=== PATIENT | female | born 1995 | race Caucasian/White ===

== ENCOUNTER 2017-05-27 10:39 | Emergency (ER) | payer MEDICAID, OTHER ==
[2017-05-27 10:43] VITALS: BP 97/66; PULSE 101; RESP 16; TEMP 98.1; O2SAT 100
--- NOTE | 2017-05-27 10:59 | C.PDOC ---
Time Seen by Provider: 05/27/17 10:47 Chief Complaint (Nursing): Dental Pain Past Medical History Vital Signs: Last Vital Signs Temp 98.1 F 05/27/17 10:41 Pulse 101 H 05/27/17 10:41 Resp 16 05/27/17 10:41 BP 97/66 L 05/27/17 10:41 Pulse Ox 100 05/27/17 10:41 - Medical History PMH: Asthma, Bipolar Disorder, Bronchitis Family History: States: Unknown Family Hx - Social History Hx Tobacco Use: Yes Hx Alcohol Use: No Hx Substance Use: No - Immunization History Hx Tetanus Toxoid Vaccination: No Hx Influenza Vaccination: No Hx Pneumococcal Vaccination: No ED Course And Treatment O2 Sat by Pulse Oximetry: 100 Disposition - Disposition Disposition: HOME/ ROUTINE Disposition Time: 10:54 Condition: STABLE Additional Instructions: Ms. Burleson, thank you for letting us take care of you today. Return to the ER if your symptoms worsen, or if any problems. Take the medication listed below as prescribed. Follow up with your dentist next week. Prescriptions: Lidocaine 2% Viscous 1 tbs MM Q3 PRN #100 bottle PRN Reason: Pain, Moderate (4-7) Instructions: Toothache (ED), Dental Caries (ED) Forms: [employer] (Irish) Print Language: GREENLANDIC - POA Present On Arrival: None - Clinical Impression Clinical Impression: Toothache
--- NOTE | 2017-05-27 11:01 | C.PDOC ---
History Of Present Illness 05/27/2017 Pt is a 21 year old female, who presents to the emergency department complaining of severe toothache on bilateral bottom side. Patient reports that this pain began three months ago, but a month ago it became severe to the point that it caused her migraines since the pain radiates up. She also states the pain is worse when eating. Patient notes that she has gone to her dentist, who explains to her of needing four wisdom teeth removed, cavities filled, and two root canal procedures--she is going to schedule these procedures. She also notes of taking Tylenol, Advil, and Aleve as home remedies for pain relief. Patient denies any fever, shortness of breath, or other complaints. Pain was a "10" prior to coming to the ED but she took Aleve and now the pain is a "0". ( No pain at present) Dentist: Jose Alvarado Time Seen by Provider: 05/27/17 10:47 Chief Complaint (Nursing): Dental Pain History Per: Patient History/Exam Limitations: no limitations Onset/Duration Of Symptoms: Worse Since (1 month ago) Current Symptoms Are (Timing): Worse Pain Scale Rating Of: 10 (when no pain medication is taken) Quality: Positive for: "Pain" Past Medical History Reviewed: Historical Data, Nursing Documentation, Vital Signs Vital Signs: Last Vital Signs Temp 98.1 F 05/27/17 10:41 Pulse 101 H 05/27/17 10:41 Resp 16 05/27/17 10:41 BP 97/66 L 05/27/17 10:41 Pulse Ox 100 05/27/17 11:17 - Medical History PMH: Asthma, Bipolar Disorder, Bronchitis Other PMH: Obesity Family History: States: No Known Family Hx - Social History Hx Tobacco Use: Yes Hx Alcohol Use: No Hx Substance Use: No - Immunization History Hx Tetanus Toxoid Vaccination: No Hx Influenza Vaccination: No Hx Pneumococcal Vaccination: No Review Of Systems Constitutional: Negative for: Fever ENT: Positive for: Mouth Pain (bilateral bottom side dental pain) Cardiovascular: Negative for: Chest Pain Respiratory: Negative for: Shortness of Breath Gastrointestinal: Negative for: Vomiting Genitourinary: Negative for: Dysuria Physical Exam - Physical Exam Appears: Well, Non-toxic, No Acute Distress Skin: Normal Color, Warm, Dry Head: Atraumatic, Normacephalic Eye(s): bilateral: Normal Inspection, PERRL, EOMI Nose: Normal Teeth: Caries, No Loose, Other (no abscess or mass) Throat: Normal Neck: Normal Cardiovascular: Rhythm Regular Respiratory: Normal Breath Sounds Gastrointestinal/Abdominal: Normal Exam Back: Normal Inspection Extremity: Normal ROM Neurological/Psych: Oriented x3, Normal Speech, Normal Cognition, Normal Motor, Normal Sensation Gait: Steady ED Course And Treatment O2 Sat by Pulse Oximetry: 100 (room air) Pulse Ox Interpretation: Normal Medical Decision Making Medical Decision Makin05/27/2017 Impression: Toothace Plan: -- Viscous Lidocaine -- Reassess and disposition Re-evaluation: Discussed results and plan with patient. Patient understands results and is agreeable with plan. All questions answered. Patient will follow up with dentist and make appointment for each procedure recommended by her dentist (4 wisdom teeth removal, cavities filled, and two root canals) Disposition - Disposition Disposition: HOME/ ROUTINE Disposition Time: 10:54 Condition: STABLE Additional Instructions: Ms. Burleson, thank you for letting us take care of you today. Return to the ER if your symptoms worsen, or if any problems. Take the medication listed below as prescribed. Follow up with your dentist next week. Prescriptions: Lidocaine 2% Viscous 1 tbs MM Q3 PRN #100 bottle PRN Reason: Pain, Moderate (4-7) Instructions: Dental Caries (ED), Toothache (ED) Forms: [employer] (Urdu) Print Language: YORUBA - POA Present On Arrival: None - Clinical Impression Clinical Impression: Toothache, Dental caries - Scribe Statement The provider has reviewed the documentation as recorded by the Scribe 05/27/2017 Scribe Attestation: Kaylah Valdez MD Scribe Attestation: All medical record entries made by the Scribe were at my direction and personally dictated by me. I have reviewed the chart and agree that the record accurately reflects my personal performance of the history, physical exam, medical decision making, and the department course for this patient. I have also personally directed, reviewed, and agree with the discharge instructions and disposition.
== END 2017-05-27 11:02 | disposition home or self-care (01) ==
LOC: C.ER 10:39
DX: K02.9 Dental caries, unspecified (principal)